=== PATIENT | female | born 1980 | race American Indian/Alaskan Native ===

== ENCOUNTER → 2020-08-19 | Day surgery (SDC) | payer SELFPAY ==
--- NOTE | 2020-08-19 13:45 | RAD REPORT ---
EXAM DESCRIPTION: US - Guided FNA Non Breast - 08/19/2020 11:50 am CLINICAL HISTORY: E04.1 COMPARISON: No comparisons TECHNIQUE: The patient presents for ultrasound-guided fine-needle aspiration of bilateral partially calcified masses. The patient has a 10-11 mm mid to lower right thyroid nodule with calcifications. T here is a 10-11 mm nodule in the mid left lobe that has speckled calcifications as well. The procedure, risks and alternatives were discussed with the patient in detail. After answering all questions, both oral and written consent were obtained. The patient had no contraindicated allergy or medication history. Time-out procedure was performed. Preliminary imaging again identified the two thyroid nodules with suspicious calcifications. The righ t and left anterior neck soft tissues were prepped and draped in the usual sterile fashion. The right -side nodule was subjected to FNA. Skin and deeper tissues were anesthetized with 1% lidocaine. Under direct sonographic visualization a 25 gauge needle was used to access the nodule. Multiple to and fr o excursions of the needle tip were made through the nodule. The FNA procedure was repeated with thre e additional needles using the same access site. All material was given to pathology for histology/cy tology assessment. The patient's left neck was then anesthetized with 1% lidocaine extending down to the thyroid gland l evel. Under direct sonographic visualization, 25 gauge needle was used to access the nodule. Multiple to and fro excursions of the needle tip performed. The FNA procedure was repeated with three additio nal needles. All material was given to pathology for assessment. Post FNA imaging shows no hematoma within or adjacent to the thyroid gland. Sterile bandages were eder ricardo to the puncture sites. There were no immediate complications. Post-procedure care and precaution instructions were given to the patient. IMPRESSION: 1. Ultrasound-guided bilateral thyroid nodule FNA procedure was performed as detailed. 2. There were no immediate complications. All obtained material was given to pathology for histology/ cytology assessment.
--- NOTE | 2020-08-19 13:50 | RAD REPORT ---
EXAM DESCRIPTION: - FINE NEEDLE ASPIRATION 2ND LES - 08/19/2020 12:13 pm CLINICAL HISTORY: BILAT THY MASSES FNA COMPARISON: No comparisons TECHNIQUE: Bilateral thyroid nodule FNA procedure was performed. The procedure findings for both asp irations are detailed in a single report. IMPRESSION: Bilateral thyroid FNA procedure was performed with both procedures detailed in the singl e report.
== END ==
LOC: FNA 09:39
PROVIDERS: ATTEND Family Medicine
PROC: 0GJK3ZZ Inspection of Thyroid Gland, Percutaneous Approach (ICD-10-PCS; principal; 2020-08-19)
DX: E04.1 Nontoxic single thyroid nodule (principal)
CPT/HCPCS: 10006; 88162

== ENCOUNTER 2020-10-30 08:31 | Day surgery (SDC) | payer SELFPAY ==
[2020-10-30] MEDS ORDERED: Ringers Lactate 1,000 ML IV ONE (09:12)
[2020-10-30] MEDS ORDERED: CEFAZOLIN/SWI 1gm 1 GM/10 ML SYR ONE (09:12)
[2020-10-30 10:06] LABS: Absolute Lymphocytes (CBC) 1.9 K/uL (0.7-4.9); Basophils % 0.8 % (0-1.3); Hematocrit 33.2 % (36.0-45.0); Lymphocytes % 29.2 % (15.3-44.8); MPV 8.8 fL (7.6-11.3); RBC Red Blood Cell Count 5.52 M/uL (3.86-4.86)
[2020-10-30] MEDS ORDERED: propofoL 200 MG/20 ML VIAL IV ONE (10:47)
[2020-10-30] MEDS ORDERED: FENTANYL CITR 100 MCG/2 ML ONE ×2 (10:48→12:03)
[2020-10-30] MEDS ORDERED: LIDOCAINE 1% MPF 5 ML VIAL ONE (10:48)
[2020-10-30] MEDS ORDERED: ROCURONIUM 50 MG/5 ML VIAL IV ONE (10:48)
[2020-10-30] MEDS ORDERED: MIDAZOLAM HCL 2 MG/2 ML INJ ONE (10:48)
[2020-10-30] MEDS ORDERED: LIDOCAINE JELLY 2%- 5 ML TUBE ONE (10:49)
[2020-10-30 10:51] LABS: Blood Morphology Comment NOTED (NOT SEEN); Platelet Estimate ADEQ; White Blood Cell Scan OK (OK)
[2020-10-30 10:52] LABS: Hypochromasia 2+; Poikilocytosis 1+
[2020-10-30] MEDS: LIDOCAINE 1% W/EPI 1:100,000 MDV 20 ML VIAL ONE ×3 (11:16→11:24)
[2020-10-30] MEDS ORDERED: dexAMETHasone 10 MG/ML VIAL ONE (11:46)
[2020-10-30] MEDS ORDERED: ONDANSETRON 4 MG/2 ML VIAL ONE (11:46)
[2020-10-30] MEDS ORDERED: KETOROLAC 30 MG/ML INJ ONE (11:46)
[2020-10-30] MEDS ORDERED: Mastisol Adhesive Liq ONE (12:56)
[2020-10-30] MEDS ORDERED: GLYCOPYRROLATE 0.2 MG/ML SYR ONE (12:59)
[2020-10-30] MEDS ORDERED: NEOSTIGMINE 1 MG/ML -5 ML ONE (13:02)
[2020-10-30] MEDS ORDERED: LIDOCAINE 2% MPF 5 ML VIAL ONE (13:03)
[2020-10-30] MEDS ORDERED: MORPHINE 4 MG/ML SYR ONE (13:36)
--- NOTE | 2020-10-30 14:13 | P.BOP ---
Preoperative diagnosis: suspicious thyroid nodules Postoperative diagnosis: same Primary procedure: total thyroidectomy Photocopying Equipment Mechanic: Janessa Morris Estimated blood loss: <20ml Specimen: thyroid, suture right upper pole. FS for parathyroid candidate Findings: multiple hard, smal nodules. FS with oncocytic cells suggestive of para. Anesthesia: General Complications: None Drain(s): KAYE drain Implants: none Fluids & blood products: 1L crystalloid Transferred to: Recovery Room Condition: Good
[2020-10-30 14:32] VITALS: TEMP 97.5
[2020-10-30] MEDS ORDERED: TRAMADOL HCL 50 MG TAB ONE (15:25)
[2020-10-30 15:51] VITALS: BP 120/71; O2SAT 97
--- NOTE | 2020-10-30 17:38 | OP ---
Date of Procedure: 10/30/2020 Surgeon: Amber Squires MD Facilities Manager: Janessa Morris. Preoperative Diagnosis: Suspicious bilateral thyroid nodules. Postoperative Diagnosis: Suspicious bilateral thyroid nodules. Procedure: Total thyroidectomy. Indication For Procedure: Ms. Joe is a 40-year-old woman who presented following referral by her primary care physician, Dr. Faria. The patient was noted to have some increased size of the t hyroid and underwent an ultrasound in early 2020, which demonstrated multiple nodules within the thyr oid, which included some rim and central calcifications. The collective imaging characteristics were concerning in regard to an elevated risk for malignancy, and a fine-needle aspiration was recommende d. An ultrasound guided fine-needle aspiration of the right middle and left middle nodules was perfo rmed and cytology was suspicious for papillary thyroid carcinoma in both lesions. The patient was re ferred for surgical evaluation. We discussed the risks, benefits, and alternatives with the patient and her [id number] and they desired to proceed. Description Of Procedure In Detail: The patient was brought to the operating room. She was placed u nder general anesthesia via oral endotracheal tube. A shoulder roll was placed and the neck was exte nded. A planned incision with an existing horizontal neck crease was designed and the area was injec renetta with 1% lidocaine with epinephrine. The neck was then prepped and draped in a sterile fashion fo r thyroid. A 5 cm incision was made through the skin and subcutaneous tissues using a scalpel follow ed by Bovie electrocautery. The platysmal layer was identified and divided and subplatysmal flaps we re elevated superiorly and inferiorly with retraction of the skin flaps. The strap muscles were ident ified and divided vertically within the midline. The strap muscles were elevated off the anterior oakley rface of the thyroid and seemed to dissect without undue difficulty. The left thyroid was addressed first. The thyroid capsule was identified and bluntly dissected using a Bennett dissector and a peanu t sponge. The LigaSure was used to divide the vascular and tissue attachments working along the late ral aspect. The superior pole was dissected using the LigaSure and the left thyroid was rolled media lly for dissection along the deep aspect. The left recurrent laryngeal nerve was identified and was noted to be deep under layer of fascia and appeared protected from dissection. The superior parathyr oid gland was identified and was left in situ attached to its vascular pedicle. During dissection, t he parathyroid appeared somewhat dusky, but on reinspection at the end of the case, it appeared to gutierrez ve good circulation and its normal color had returned. The left thyroid specimen was released in the area of Chau's ligament and elevated off the anterior tracheal wall using the LigaSure to divide lo ose areolar attachments and small vessels. The left thyroid was then replaced back into its anatomic position while the right side was dissected. The strap muscles were elevated bluntly from the surfa ce of the thyroid and retracted laterally. The inferior pole of the thyroid was identified and caref ully dissected using a Bennett dissector. The LigaSure was used to divide vascular attachments from a round the lower pole and dissection was carried up in an inferior to superior direction towards the s uperior pole. The superior pole was grasped with a Roderick and blunt dissection along the capsule wa s undertaken with division of the vascular pedicle using the LigaSure. The deeper aspects were caref ully dissected and after removal, the area was carefully inspected. There was a small, approximately 3 mm purplish nodule and a small sliver from the top of it was sent to pathology for evaluation to r mele out metastatic papillary thyroid carcinoma. While awaiting pathologic evaluation, the bilateral paratracheal region was carefully inspected and thoroughly palpated, but there was no palpable or vis ible lymphadenopathy. After several minutes, the purplish nodule was reinspected and appeared to hav e become a dark aguero color and I suspected this area was a parathyroid gland based on its color change . During dissection, there was likely some vascular spasm of its pedicle resulting in hypoxia of the tissues, but their return to normal parathyroid color suggested no metastatic thyroid cancer was lik rachael. In consultation with the pathologist, she noted a small amount of fatty tissue and suggestion o f some oncocytic cells under the microscope, which was suggestive of parathyroid. Therefore, this ti ssue was left in situ attached to its vascular pedicle and the decision was made to forego central ne ck dissection based on no clinical evidence of gross metastatic disease. A 10-Ukrainian round drain was placed within the surgical bed and withdrawn through the right skin flap. The strap muscles were ap proximated with a single suture in the midline. The deep tissue layers were approximated using 4-0 V icryl interrupted buried sutures. The skin was closed in a subcutaneous fashion using 5-0 Monocryl. The skin was cleaned and dried. Mastisol and Steri-Strips were applied to the incision. The KAYE kai in was connected to the bulb and a small amount of blood emptied into the reservoir, but there was no significant bleeding, no swelling and no oozing from the wound. The patient was returned to care of Anesthesia for awakening and extubation in the operating room, which proceeded without difficulty. Complications: None. Disposition: The patient's parathyroid hormone in the recovery room was noted to be 23 and therefore the likelihood of symptomatic postoperative hypocalcemia was very low and decision was made to disch arge the patient to home. The patient is in the care of her adult aboacmlx-rs-hay over the weekend a nd they were instructed to call Dr. Squires for any difficulty breathing, increased difficulty swallo wing, or other concerns. The patient is noted to be mildly hoarse in the recovery room and she is in structed to use lxdb-juj-uzbbwcz thickener if she finds herself coughing or choking with water or oth er thin liquids. The patient and her teghzbef-if-mtf expressed understanding with these instructions . JUANITA/BUFFY Voice ID: [id number] Report ID: [id number]
== END 2020-10-30 15:50 | disposition home or self-care (01) ==
LOC: OR 08:31
PROVIDERS: ATTEND Otolaryngology
PROC: 0GBJ0ZZ Excision of Thyroid Gland Isthmus, Open Approach (ICD-10-PCS; 2020-10-30)
PROC: 0GTK0ZZ Resection of Thyroid Gland, Open Approach (ICD-10-PCS; principal; 2020-10-30 10:00)
DX: C73 Malignant neoplasm of thyroid gland (principal); Z20.822 Contact with and (suspected) exposure to COVID-19
CPT/HCPCS: 36415; 81025; 82306; 83970; 85025; 88305; 88307; 88333; J0690; J1100; J2250; J2405; J2704; J2710; J3010; J7120; U0003